=== PATIENT | female | born 1955 | race Caucasian/White ===

== ENCOUNTER 2016-10-15 17:15 | Emergency (ER) | payer MEDICAID ==
[~2016-10-15] VITALS: Ht 162.6 cm; Wt 55.5 kg
[~2016-10-15 17:15] MED LIST: ENAL10TA PO; HYD25 PO; METF1000 PO; ZOC20 PO; [UNRECOGNIZED DRUG - CODE] MC
[2016-10-15 19:22] VITALS: Ht 162.6 cm; Wt 55.5 kg
[2016-10-15] MEDS ORDERED: ACETAMINOPHEN 500 MG TAB PO STA (21:02)
[2016-10-15 21:13] LABS: URINE BLOOD (Dip) POC Trace-intact (NEGATIVE)
--- NOTE | 2016-10-15 21:23 | RADRPT ---
PROCEDURE: XR Chest. CLINICAL INDICATION: Cough TECHNIQUE: PA and lateral view of the chest were obtained COMPARISON: None FINDINGS: The aorta is tortuous. The cardiomediastinal silhouette is otherwise within normal limits. The oswaldo gs and pleural spaces are clear. The soft tissues and osseous structures are unremarkable. IMPRESSION: No acute cardiopulmonary disease. RPTAT: HPNM Physician Julio Date Time Electronically viewed and signed by Brendan Soriano Physician on 10/15/2016 21:22 /
--- NOTE | 2016-10-15 21:56 | ERD ---
ER Documentation Chief Complaint Date/Time DATE: 10/15/16 TIME: 21:49 Chief Complaint cough x 2 weeks HPI The patient is a 61-year-old female brought in by her daughter for subjective fevers and cough 2 weeks; sinus headache and body aches since yesterday. She has not taken any medication for pain or fever at home. She has been going to work except for today. She denies chest pain, difficulty breathing, shortness of breath, nausea, vomiting, diarrhea, chills, abdominal pain, pelvic pain, dysuria, flank pain, or any other symptoms or concerns at this time. She reports sick contacts with same symptoms. No international travel. Patient denies smoking. ROS All systems reviewed and are negative except as per history of present illness. Medications Home Meds Active Scripts Amoxicillin/Potassium Clav (Amox-Clav 875-125 mg Tablet) 875-125 mg Tab, 1 TAB PO BID for 7 Days, #14 TAB Prov:GEORGE SILVER, [employer] 10/15/16 Acetaminophen* (Tylophen*) 500 Mg Capsule, 1000 MG PO Q6H Y for PAIN for 7 Days , TAB Prov:GEORGE SILVER, [employer] 10/15/16 Benzonatate* (Tessalon Perle*) 100 Mg Capsule, 100 MG PO Q8H Y for COUGH for 7 Days, CAP Prov:GEORGE SILVER, [employer] 10/15/16 Syring W-Ndl,Disp,Insul,0.3ML (EASY COMFORT INSULIN SYRINGE) 1 Each Disp.syrin, 1 EACH MC, #30 0.3 ml Prov:MARY CHEN DO 07/17/16 Metformin Hcl* (Metformin Hcl*) 1,000 Mg Tablet, 1000 MG PO WITH BREAKFAST DINNE , #60 TAB Prov:MARY CHEN DO 07/17/16 Simvastatin (Simvastatin) 20 Mg Tablet, 20 MG PO DAILY, #30 TAB Prov:MARY CHEN DO 07/17/16 Enalapril Maleate* (Enalapril Maleate*) 10 Mg Tablet, 10 MG PO DAILY, #30 TAB Prov:MARY CHEN DO 07/17/16 Hydrochlorothiazide* (Hydrochlorothiazide*) 25 Mg Tab, 25 MG PO DAILY, #30 TAB Prov:MARY CHEN DO 07/17/16 Allergies Allergies: Coded Allergies: No Known Allergy (Unverified , 07/17/16) PMhx/Soc Medical and Surgical Hx: pt denies Surgical Hx History of Surgery: No Anesthesia Reaction: No Hx Neurological Disorder: No Hx Respiratory Disorders: No Hx Cardiac Disorders: Yes (HTN, hyperlipidemia) Hx Psychiatric Problems: No Hx Miscellaneous Medical Probl: Yes (DM) Hx Alcohol Use: No Hx Substance Use: No Hx Tobacco Use: No Smoking Status: Never smoker Physical Exam Vitals Vital Signs Date Time Temp Pulse Resp B/P Pulse Ox O2 Delivery O2 Flow Rate FiO2 10/15/16 22:26 98.5 10/15/16 19:22 99.8 95 20 122/63 97 Physical Exam INITIAL VITAL SIGNS: Reviewed by me, afebrile, no tachycardia, no tachypnea, oximetry 97% on room air GENERAL: Alert. Well developed and well nourished. No acute distress. Nontoxic appearing. HEAD: Head is normocephalic. Atraumatic. EYES: EOMI. PERRL. No scleral icterus. No conjunctival injection. ENT: External ears, nose, and mouth normal. Tympanic membranes without erythema or bulging. No effusion. Nasal passages patent and with clear rhinorrhea. Moist mucous membranes. NECK: Supple. Full range of motion. No lymphadenopathy. No meningismus. Trachea midline. RESPIRATORY: No tachypnea. Clear to auscultation bilaterally. No wheezing, rales , or rhonchi. CV: Regular rate and rhythm. No murmurs, rubs, or gallops ABDOMEN: Soft, non-distended, non-tender. No guarding. Bowel sounds normal in all quadrants. BACK: No CVA tenderness. Full ROM. EXTREMITIES: No obvious deformity. No clubbing or cyanosis. No edema. SKIN: Warm and dry. No diaphoresis. No obvious rashes or lesions. NEUROLOGIC: Alert and oriented x 3. Appropriate. Face is symmetric. Speech is normal. Moves all extremities equally. Results 24 hrs Laboratory Tests Test 10/15/16 20:34 10/15/16 21:14 Bedside Glucose 315mg/dL Bedside Urine Blood Trace-intact Bedside Urine Glucose (UA) 0.50% Bedside Urine Ketones (LAB) Trace Bedside Urine Leukocyte Esterase (L Negative Bedside Urine Nitrite (LAB) Positive Bedside Urine Protein (LAB) Trace Bedside Urine pH (LAB) 5.5 Current Medications Medications (Trade) Dose Ordered Sig/Isa Route PRN Reason Start Time Stop Time Status Last Admin Dose Admin Acetaminophen (Tylenol Tab) 1,000 mg ONCE STAT PO 10/15/16 21:02 10/15/16 21:04 DC 10/15/16 21:26 [place] [id number] Radiology Main Line: [phone] DIAGNOSTIC IMAGING REPORT Patient: LAUREN BUITRAGO : 1955 Age: 61 Sex: F MR #: [id number] DOS: 10/15/162050 Ordering MD: GEORGE SILVER NP Location: [facility] Room/Bed: PROCEDURE: XR Chest. CLINICAL INDICATION: Cough TECHNIQUE: PA and lateral view of the chest were obtained COMPARISON: None FINDINGS: The aorta is tortuous. The cardiomediastinal silhouette is otherwise within normal limits. The lungs and pleural spaces are clear. The soft tissues and osseous structures are unremarkable. IMPRESSION: No acute cardiopulmonary disease. RPTAT: HPNM Physician Julio Date Time Electronically viewed and signed by Physician Julio on 10/15/2016 21 :22 / CC: GEORGE SILVRE NP Procedures/MDM Nursing Notes Reviewed Previous Medical Records requested via [facility]. EMERGENCY DEPARTMENT COURSE / MEDICAL DECISION MAKING: The patient comes to the ED secondary to subjective fevers and cough 2 weeks; sinus headache and body aches since yesterday. Differential diagnosis upon initial evaluation includes but is not limited to: viral syndrome, cholecystitis, pancreatitis, colitis, UTI, pyelonephritis, pneumonia, bronchitis, URI, meningitis, sepsis The patient was treated with Tylenol 1 g by mouth. The case was discussed with supervising physician Dr. Welsh. Discussed the patient's history of present illness, physical exam findings, fingerstick blood glucose of [address] Welsh. The decision was made not to give the patient insulin for her hyperglycemia. The patient's repeat physical exam was benign. She was afebrile and in no acute distress. Oximetry is 97% on room air. No tachycardia. No tachypnea. The patient appears well in general and was nontoxic. She denied any abdominal pain , dysuria, neck soreness or stiffness, lethargy, I have low suspicion at this time for cholecystitis, pancreatitis, UTI, colitis, pyelonephritis, pneumonia, meningitis, or sepsis. Final impression: Viral syndrome Sinusitis Based on patient's history of present illness and physical examination the decision was made to discharge. The patient was re-evaluated after ED treatment and stabilizing measures, and symptoms have improved. There is no evidence of life threatening injuries or illnesses at this time. On re-examination, patient resting in no distress, stable vital signs, reports feeling better and safe for discharge with outpatient follow up with PMD in 1-2 days. Patient given return precautions. The patient was instructed that her blood sugar may be labile secondary to infection. She verbalized understanding. Prescriptions Tylenol Tessalon Perles Augmentin Departure Diagnosis: Primary Impression: Sinusitis Sinusitis location: maxillary Chronicity: acute Recurrence: not specified as recurrent Qualified Code: J01.00 - Acute maxillary sinusitis, recurrence not specified Additional Impression: Viral syndrome Condition: Stable GEORGE SILVER NP Oct 15, 2016 21:56
[2016-10-15] MEDS ORDERED: BENZ100C70 PO (21:59)
[2016-10-15] MEDS ORDERED: AMOX1TAB10 PO (21:59)
[2016-10-15] MEDS ORDERED: ACET500C5 PO (21:59)
[2016-10-15 22:26] VITALS: TEMP 98.5
== END 2016-10-15 22:26 | disposition home or self-care (01) ==
LOC: FTE 17:15
DX: J01.00 Acute maxillary sinusitis, unspecified (principal); B34.9 Viral infection, unspecified; I10 Essential (primary) hypertension; E11.9 Type 2 diabetes mellitus without complications; Z79.84 Long term (current) use of oral hypoglycemic drugs
CPT/HCPCS: 71020; 81003; 82962; Z7502; Z7610

== ENCOUNTER 2018-01-15 19:57 | Inpatient (IN) | END 2018-01-21 15:00 | disposition home or self-care (01) | DRG 440 ==